=== PATIENT | female | born 1975 | race Caucasian/White ===

== ENCOUNTER 2018-06-27 13:19 | Day surgery (SDC) | payer BC, OTHER ==
[~2018-06-27] VITALS: Ht 175.3 cm; Wt 149.9 kg
[2018-06-27 14:13] VITALS: BP 133/88; PULSE 76; RESP 16
--- NOTE | 2018-06-27 14:32 | PREAC ---
Date/Time of Note Date/Time of Note DATE: 06/27/18 TIME: 14:30 Anesthesia Eval and Record Evaluation Time Pre-Procedure Interview DATE: 06/27/18 TIME: 14:30 Age 43 Sex female NPO: 8 hrs Preoperative diagnosis abdominal pain Planned procedure colonoscopy Past Medical History Past Medical History: Includes Cardio: HTN Neuro: Other (migraines) GI: Morbid obesity, Other (diverticulitis) Surgery & Anesthesia Issues No known issue Meds Anticoagulation: No Beta Marisa within 24 hr: Yes Reason Beta Marisa not given: Bradycarida, Hypotension Meds reviewed: Yes Allergies Coded Allergies: No Known Allergy (Unverified , 06/27/18) Allergies Reviewed: Yes Labs/Studies Labs Reviewed: Reviewed by anesthesiologist test: Negative Pre-procedure Exam Last vitals Vital Signs Date Temp Pulse Resp B/P (MAP) Pulse Ox O2 O2 Flow FiO2 Time Delivery Rate 06/27/18 98.1 76 16 133/88 96 Room Air 14:13 (103) Airway: Adequate mouth opening, Adequate thyromental dist Mallampati: Mallampati II Teeth: Normal Lung: Normal Heart: Normal ASA Physical Status ASA physical status: 3 Emergency: None Planned Anesthetic General/MAC: Mask Planned Pain Management Parenteral pain med Pre-operative Attestations Prior to commencing anesthesia and surgery, the patient was re-evaluated, there was verification of: *The patient's identity *The results of appropriate recent lab work and preoperative vital signs *The above evaluation not changing prior to induction *Anesthetic plan, risk benefits, alternative and complications discussed with patient/family; questions answered; patient/family understands, accepts and wishes to proceed. KATHLEEN CHAN MD Jun 27, 2018 14:32
[2018-06-27] MEDS ORDERED: IBUPROFEN (14:46)
[2018-06-27] MEDS ORDERED: METOPROLOL (14:46)
[2018-06-27] MEDS ORDERED: TOPAMAX (14:46)
[2018-06-27] MEDS ORDERED: BENAZEPRIL (14:46)
[2018-06-27] MEDS ORDERED: METAMUCIL (14:46)
[2018-06-27] MEDS ORDERED: ONDANSETRON 4 MG INJ IV PRN (15:00)
[2018-06-27] MEDS ORDERED: PROPOFOL 20 ML ONE ×3 (16:00→16:33)
[2018-06-27] MEDS ORDERED: ETOMIDATE 20 MG INJ ONE (16:00)
[2018-06-27] MEDS ORDERED: MIDAZOLAM 1 MG/ML 2 ML INJ ONE (16:00)
[2018-06-27] MEDS ORDERED: LIDOCAINE 2% (SDV) 5 ML INJ ONE (16:00)
[2018-06-27 16:35] VITALS: BP 104/55; PULSE 80; RESP 16
--- NOTE | 2018-06-27 16:43 | PAC ---
Date/Time of Note Date/Time of Note DATE: 06/27/18 TIME: 16:43 Post-Anesthesia Notes Post-Anesthesia Note Last documented vital signs Vital Signs Date Temp Pulse Resp B/P (MAP) Pulse Ox O2 O2 Flow FiO2 Time Delivery Rate 06/27/18 98.1 76 16 133/88 96 Room Air 14:13 (103) Activity: WNL Respiratory function: WNL Cardiovascular function: WNL Mental status: Baseline Pain reasonably controlled: Yes Hydration appropriate: Yes Nausea/Vomiting absent: Yes Comments BP: 107/68 HR: 76 RR: 15 T: 98 SaO2: 99% KATHLEEN CHAN MD Jun 27, 2018 16:43
[2018-06-27 16:50] VITALS: BP 123/65; PULSE 71; RESP 19
[2018-06-27 17:05] VITALS: BP 136/70; PULSE 72; RESP 18
== END 2018-06-27 17:54 | disposition home or self-care (01) ==
LOC: GIL 13:19
PROVIDERS: ATTEND Internal Medicine Gastroenterology
DX: K57.30 Diverticulosis of large intestine without perforation or abscess without bleeding (principal); K64.8 Other hemorrhoids; K21.0 Gastro-esophageal reflux disease with esophagitis; I10 Essential (primary) hypertension
CPT/HCPCS: 43239; 45380; 84703; 88305; 88312; 88313; J2250; Z7610